=== PATIENT | female | born 2000 | race African-American/Black ===

== ENCOUNTER 2022-07-13 20:43 | Emergency (ER) | payer BC ==
[~2022-07-13] VITALS: Ht 162.6 cm; Wt 68.0 kg
[2022-07-13 20:51] VITALS: BP 117/93
== END 2022-07-14 03:41 | disposition left against medical advice (07) ==
LOC: ER 20:43
DX: Z53.21 Procedure and treatment not carried out due to patient leaving prior to being seen by health care provider (principal)